=== PATIENT | female | born 1985 | race Caucasian/White ===

== ENCOUNTER 2017-09-26 20:58 | Emergency (ER) | payer BC, OTHER ==
[~2017-09-26] VITALS: Ht 172.7 cm; Wt 54.4 kg
[2017-09-26] MEDS ORDERED: ALPR2TAB2 PO (21:05)
--- NOTE | 2017-09-26 21:25 | ED Chest Pain ---
General Chief Complaint: Chest Wall/Rib Pain Stated Complaint: CP Nursing Triage Note: intermittant reproducable chest wall pain x2 days after cocaine use. worse tonight. Nursing Sepsis Screen: No Definite Risk Source: patient Exam Limitations: no limitations History of Present Illness Date Seen by Provider: Sep 26, 2017 Time Seen by Provider: 21:23 Initial Comments To ER accompanied by family with reports of central chest pain and shortness of breath. This began about 2-3 days ago after using cocaine by snorting it, ecstasy by eating it and smoking marijuana. Chest pain is worsened by deep breathing. Timing/Duration: 24 hours Severity/Quality: moderate Location: central Radiation: no radiation Prior CP/Workup: no prior chest pain ASA po FRUIT HARVEST MACHINE OPERATOR: No NTG SL FRUIT HARVEST MACHINE OPERATOR: No Associated Symptoms: No nausea/vomiting Allergies and Home Medications Allergies Coded Allergies: Penicillins (Verified Allergy, Unknown, 09/26/17) tramadol (Verified Allergy, Unknown, 09/26/17) Patient Home Medication List Home Medication List Reviewed: Yes Review of Systems Constitutional: see HPI EENTM: No Symptoms Reported Respiratory: See HPI; Denies Cough; Shortness of Air, SOA With Exertion, SOA at Rest Cardiovascular: See HPI, Chest Pain Gastrointestinal: No Symptoms Reported Genitourinary: No Symptoms Reported Musculoskeletal: no symptoms reported Skin: no symptoms reported Psychiatric/Neurological: No Symptoms Reported Endocrine: No Symptoms Reported Past [id number]-[id number]-[id number] Hx Patient Social History Alcohol Use: Denies Use Recreational Drug Use: Yes Drug of Choice: cocaine, extacy, cannibus Smoking Status: Current Everyday Smoker Type Used: Cigarettes 2nd Hand Smoke Exposure: Yes Recent Foreign Travel: No Contact w/Someone Who Travel: No Recent Infectious Disease Expo: No Recent Hopitalizations: No Immunizations Up To Date Tetanus Booster (TDap): Unknown Seasonal Allergies Seasonal Allergies: No Past Medical History Surgeries: Yes (dental) Gallbladder Respiratory: Yes COPD Cardiac: No Neurological: No : No Genitourinary: No Gastrointestinal: No Musculoskeletal: No Endocrine: No HEENT: No Cancer: No Psychosocial: Yes Anxiety Integumentary: No Blood Disorders: No Adverse Reaction/Blood Tranf: No Physical Exam Vital Signs Vital Signs - First Documented 09/26/17 21:05 Temp 97.4 Pulse 80 Resp 18 B/P (MAP) 136/96 (109) Pulse Ox 100 O2 Delivery Room Air Capillary Refill : Less Than 3 Seconds Height, Weight, BMI Height: 5'8.00" Weight: 120lbs. oz. 54.164252mw; BMI Method:Stated General Appearance: No Apparent Distress, WD/WN HEENT: PERRL/EOMI, TMs Normal Neck: Full Range of Motion, Normal Inspection Respiratory: Lungs Clear, Normal Breath Sounds, No Accessory Muscle Use, No Respiratory Distress, Other (there is some tenderness to palpation of the sternum but she states this is a different pain than the pain that she has been having) Cardiovascular: Regular Rate, Rhythm, Normal Peripheral Pulses Gastrointestinal: Normal Bowel Sounds, Non Tender, Soft Extremity: Normal Capillary Refill, Normal Inspection Neurologic/Psychiatric: Alert, Oriented x3 Skin: Normal Color, Warm/Dry Progress/Results/Core Measures Results/Orders Lab Results Laboratory Tests Test 09/26/17 21:20 Range/Units White Blood Count 9.8 4.3-11.0 10^3/uL Red Blood Count 4.78 4.35-5.85 10^6/uL Hemoglobin 14.0 11.5-16.0 G/DL Hematocrit 40 35-52 % Mean Corpuscular Volume 84 80-99 FL Mean Corpuscular Hemoglobin 29 25-34 PG Mean Corpuscular Hemoglobin Concent 35 32-36 G/DL Red Cell Distribution Width 14.1 10.0-14.5 % Platelet Count 308 130-400 10^3/uL Mean Platelet Volume 11.2 H 7.4-10.4 FL Neutrophils (%) (Auto) 62 42-75 % Lymphocytes (%) (Auto) 28 12-44 % Monocytes (%) (Auto) 6 0-12 % Eosinophils (%) (Auto) 4 0-10 % Basophils (%) (Auto) 1 0-10 % Neutrophils # (Auto) 6.0 1.8-7.8 X 10^3 Lymphocytes # (Auto) 2.7 1.0-4.0 X 10^3 Monocytes # (Auto) 0.6 0.0-1.0 X 10^3 Eosinophils # (Auto) 0.4 H 0.0-0.3 10^3/uL Basophils # (Auto) 0.1 0.0-0.1 10^3/uL D-Dimer 0.23 0.00-0.49 UG/ML Sodium Level 139 135-145 MMOL/L Potassium Level 3.4 L 3.6-5.0 MMOL/L Chloride Level 104 98-107 MMOL/L Carbon Dioxide Level 25 21-32 MMOL/L Anion Gap 10 5-14 MMOL/L Blood Urea Nitrogen 4 L 7-18 MG/DL Creatinine 0.75 0.60-1.30 MG/DL Estimat Glomerular Filtration Rate > 60 BUN/Creatinine Ratio 5 Glucose Level 99 70-105 MG/DL Calcium Level 9.1 8.5-10.1 MG/DL Corrected Calcium 9.1 8.5-10.1 MG/DL Total Bilirubin 0.3 0.1-1.0 MG/DL Aspartate Amino Transf (AST/SGOT) 15 5-34 U/L Alanine Aminotransferase (ALT/SGPT) 13 0-55 U/L Alkaline Phosphatase 45 40-136 U/L Troponin I < 0.30 <0.30 NG/ML Total Protein 6.6 6.4-8.2 GM/DL Albumin 4.0 3.2-4.5 GM/DL Serum Test, Qualitative NEGATIVE NEGATIVE My Orders Orders - ANA PAULA DURAN APRN Cbc With Automated Diff (09/26/17 21:00) Comprehensive Metabolic Panel (09/26/17 21:00) Ekg Tracing (09/26/17 21:00) Chest Pa/Lat (2 View) (09/26/17 21:00) Fibrin Degradation Products (09/26/17 21:00) Troponin I (09/26/17 21:11) Albuterol/Ipra Inhalation Soln (Duoneb I (09/26/17 21:30) Svn Small Volume Nebulizer (09/26/17 21:23) Hcg,Qualitative Serum (09/26/17 21:31) Dexamethasone Injection (Decadron Inject (09/26/17 22:00) Hydroxyzine Oral (Vistaril Capsule) (09/26/17 22:00) Medications Given in ED Current Medications Medications Dose Ordered Sig/Ming Route Start Time Stop Time Status Last Admin Dose Admin Albuterol/ Ipratropium 3 ml ONCE ONCE INH 09/26/17 21:30 09/26/17 21:31 DC 09/26/17 21:38 3 ML Vital Signs/I&O 09/26/17 09/26/17 21:05 21:38 Temp 97.4 Pulse 80 Resp 18 B/P (MAP) 136/96 (109) Pulse Ox 100 100 O2 Delivery Room Air Room Air Blood Pressure Mean: 109 Progress Progress Note : Progress Note EKG reveals no ST segment changes consistent with ischemia or pericarditis. D- dimer is negative she is not tachycardic and oxygen saturation is and which eliminates pulmonary embolism as possible etiology. No pleural effusion. We'll treat this as pleuritis Diagnostic Imaging Diagonstic Imaging: Xray Plain Films/CT/US/NM/MRI: chest Comments NAME: JUAN DONOVAN I [facility] REC#: [id number] PT STATUS: REG ER : 1985 PHYSICIAN: ANA PAULA DURAN APRN ADMIT DATE: 09/26/17/ER Draft Date of Exam:09/26/17 CHEST PA/LAT (2 VIEW) INDICATION: Chest wall pain. EXAMINATION: PA and lateral chest at 9:40 P.m. COMPARISON: There are no prior studies available for comparison. FINDINGS: Heart size is within normal limits. The lungs are clear. There is no evidence for pneumonia or for a pleural effusion. There is no sign of a pneumothorax. The mediastinum is not widened. The osseous structures are intact. IMPRESSION: There is no evidence for an acute cardiopulmonary abnormality. Dictated on workstation # [id number] Dict: 09/26/172145 Trans: 09/26/172150 [facility] [id number] Interpreted by: KATRINA BLOOM MD Electronically signed by: Departure Impression Primary Impression: Pleuritic chest pain Disposition: 01 HOME, SELF-CARE Condition: Stable Departure-Patient Inst. Decision time for Depature: 21:55 Patient Instructions: Pleuritic Chest Pain (DC) Add. Discharge Instructions: 1. Follow-up with your doctor next week. If you do not have a Doctor, A list is provided for you 2. Return to ER for any concerns 3. 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
[2017-09-26 21:28] LABS: BASOPHILS # (AUTO) 0.1 10^3/uL (0.0-0.1); BASOPHILS % (AUTO) 1 % (0-10); EOSINOPHILS # (AUTO) 0.4 10^3/uL (0.0-0.3); EOSINOPHILS % (AUTO) 4 % (0-10); HEMATOCRIT 40 % (35-52); LYMPHOCYTES # (AUTO) 2.7 X 10^3 (1.0-4.0); LYMPHOCYTES % (AUTO) 28 % (12-44); MEAN CORPUSCULAR HEMOGLOBIN 29 PG (25-34); MEAN CORPUSCULAR HGB CONC 35 G/DL (32-36); MEAN CORPUSCULAR VOLUME 84 FL (80-99); MEAN PLATELET VOLUME 11.2 FL (7.4-10.4); MONOCYTES # (AUTO) 0.6 X 10^3 (0.0-1.0); MONOCYTES % (AUTO) 6 % (0-12); NEUTROPHILS % (AUTO) 62 % (42-75); PLATELET COUNT 308 10^3/uL (130-400); RED BLOOD COUNT 4.78 10^6/uL (4.35-5.85); RED CELL DISTRIBUTION WIDTH 14.1 % (10.0-14.5); WHITE BLOOD COUNT 9.8 10^3/uL (4.3-11.0)
[2017-09-26] MEDS ORDERED: RT-ALBUTEROL/IPRATROPIUM 3 ML (DUONEB) VIAL INH ONE (21:30)
[2017-09-26 21:48] LABS: ALANINE AMINOTRANSFERASE 13 U/L (0-55); ALKALINE PHOSPHATASE 45 U/L (40-136); BILIRUBIN,TOTAL 0.3 MG/DL (0.1-1.0); BUN/CREATININE RATIO 5; CALCIUM 9.1 MG/DL (8.5-10.1); CARBON DIOXIDE 25 MMOL/L (21-32); CHLORIDE 104 MMOL/L (98-107); CREATININE SERUM 0.75 MG/DL (0.60-1.30); GFR ESTIMATED > 60; GLUCOSE 99 MG/DL (70-105); POTASSIUM 3.4 MMOL/L (3.6-5.0); SODIUM 139 MMOL/L (135-145); TOTAL PROTEIN 6.6 GM/DL (6.4-8.2)
--- NOTE | 2017-09-26 21:52 | Diagnostic Imaging Report ---
INDICATION: Chest wall pain. EXAMINATION: PA and lateral chest at 9:40 P.m. COMPARISON: There are no prior studies available for comparison. FINDINGS: Heart size is within normal limits. The lungs are clear. There is no evidence for pneumonia or for a pleural effusion. There is no sign of a pneumothorax. The mediastinum is not widened. The osseous structures are intact. IMPRESSION: There is no evidence for an acute cardiopulmonary abnormality. Dictated by: Dictated on workstation # [id number]
[2017-09-26] MEDS ORDERED: DEXAMETHASONE 10 MG/ML (DECADRON) 1 ML VIAL IM ONE (22:00)
[2017-09-26] MEDS ORDERED: hydrOXYzine (VISTARIL) 25 MG CAP PO ONE (22:00)
[2017-09-26 22:21] VITALS: BP 114/82
== END 2017-09-26 22:21 | disposition home or self-care (01) ==
LOC: ER 20:59
DX: R07.81 Pleurodynia (principal); J44.9 Chronic obstructive pulmonary disease, unspecified; F41.9 Anxiety disorder, unspecified; F14.10 Cocaine abuse, uncomplicated; F12.10 Cannabis abuse, uncomplicated; F19.10 Other psychoactive substance abuse, uncomplicated; F17.210 Nicotine dependence, cigarettes, uncomplicated; Z88.0 Allergy status to penicillin; Z88.6 Allergy status to analgesic agent
CPT/HCPCS: 36415; 71046; 80053; 84484; 84703; 85025; 85379; 93005; 94640; 94664